=== PATIENT | male | born 2000 | race Caucasian/White ===

== ENCOUNTER 2023-06-09 01:24 | Emergency (ER) | payer MEDICAID, OTHER ==
[~2023-06-09] VITALS: Ht 160 cm; Wt 59.1 kg
[2023-06-09] MEDS ORDERED: ONDANSETRON INJECTION 4 MG/2 ML (SDV) IVP ONE (01:30)
[2023-06-09 01:43] LABS: BASOPHILS # (AUTO) 0.1 10^3/uL (0.0-0.1); BASOPHILS % (AUTO) 1 % (0-10); EOSINOPHILS # (AUTO) 0.1 10^3/uL (0.0-0.3); EOSINOPHILS % (AUTO) 2 % (0-10); HEMATOCRIT 41 % (40-54); HEMOGLOBIN 14.1 g/dL (13.3-17.7); LYMPHOCYTES # (AUTO) 3.1 10^3/uL (1.0-4.0); LYMPHOCYTES % (AUTO) 35 % (12-44); MEAN CORPUSCULAR HEMOGLOBIN 31 pg (25-34); MEAN CORPUSCULAR HGB CONC 35 g/dL (32-36); MEAN CORPUSCULAR VOLUME 90 fL (80-99); MEAN PLATELET VOLUME 9.4 fL (9.0-12.2); MONOCYTES # (AUTO) 0.6 10^3/uL (0.0-1.0); MONOCYTES % (AUTO) 7 % (0-12); NEUTROPHILS % (AUTO) 56 % (42-75); PLATELET COUNT 305 10^3/uL (130-400); WHITE BLOOD COUNT 8.8 10^3/uL (4.3-11.0)
[2023-06-09 01:55] LABS: AMPHETAMINE SCREEN, URINE POSITIVE (NEGATIVE); BARBITURATE SCREEN URINE NEGATIVE (NEGATIVE); BENZODIAZEPINES SCREEN URINE NEGATIVE (NEGATIVE); CANNABINOID SCREEN, URINE NEGATIVE (NEGATIVE); COCAINE SCREEN URINE NEGATIVE (NEGATIVE); METHADONE STAT NEGATIVE (NEGATIVE); OPIATE SCREEN URINE NEGATIVE (NEGATIVE); OXYCODONE STAT NEGATIVE (NEGATIVE); PROPOXYPHENE STAT NEGATIVE (NEGATIVE); TRICYCLIC ANTIDEPRESSANTS SCRE NEGATIVE (NEGATIVE)
[2023-06-09 01:59] LABS: CALCIUM 8.9 MG/DL (8.5-10.1); CREATININE SERUM 0.97 MG/DL (0.60-1.30); POTASSIUM 3.4 MMOL/L (3.6-5.0)
--- NOTE | 2023-06-09 02:14 | ED General ---
General Chief Complaint: Substance Abuse Stated Complaint: AMS Nursing Triage Note: Patient brought in via EMS with c/o patient being found on the ground. Patient states he was drinking alcohol tonight, but denies any drug use. Patient denies any other symptoms. Source of Information: Patient, EMS Exam Limitations: No Limitations History of Present Illness Date Seen by Provider: Jun 09, 2023 Time Seen by Provider: 01:27 Initial Comments This 23-year-old young man presents to the emergency room via EMS after being found down on the sidewalk. He denies any pain and does not have any evident injury. He is acutely intoxicated and admits to drinking alcohol tonight. He is alert to person but not place, date, or year. Vital signs are unremarkable. He reports a little bit of nausea. Allergies and Home Medications Allergies Coded Allergies: cefdinir (Verified Allergy, Unknown, 06/09/23) Patient Home Medication List Home Medication List Reviewed: Yes Review of Systems Review of Systems Constitutional: see HPI EENTM: no symptoms reported Respiratory: no symptoms reported Cardiovascular: no symptoms reported Gastrointestinal: see HPI Genitourinary: no symptoms reported Musculoskeletal: no symptoms reported Skin: no symptoms reported Psychiatric/Neurological: See HPI Hematologic/Lymphatic: No Symptoms Reported Immunological/Allergic: no symptoms reported Past Bqsesdc-Lokyzl-Rbectr Hx Patient Social History Tobacco Use?: No Use of E-Cig and/or Vaping dev: No Substance use?: No Alcohol Use?: Yes Alcohol Frequency: Rarely Immunizations Up To Date Influenza Vaccine Up-to-Date: No; Not Current Past Medical History Surgery/Hospitalization HX: ADHD Surgeries: No Respiratory: No Cardiac: No Neurological: No Genitourinary: No Gastrointestinal: No Musculoskeletal: No Endocrine: No HEENT: No Cancer: No Psychosocial: Yes ADD/ADHD Integumentary: No Physical Exam Vital Signs Vital Signs - First Documented 06/09/23 06/09/23 01:24 05:53 Temp 37.1 Pulse 96 Resp 12 B/P (MAP) 107/74 (85) Pulse Ox 97 O2 Delivery Room Air Capillary Refill : Height, Weight, BMI Height: '" Weight: lbs. oz. kg; 23.00 BMI Method: General Appearance: No Apparent Distress, WD/WN, Thin, Other (Intoxicated) HEENT: PERRL/EOMI, Normal ENT Inspection, Other (No apparent facial or dental injury) Neck: Normal Inspection, Non Tender, Supple Respiratory: Chest Non Tender, Lungs Clear, Normal Breath Sounds, No Accessory Muscle Use Cardiovascular: Regular Rate, Rhythm, No Edema, No Murmur Gastrointestinal: Non Tender, Soft; No Distended Extremity: Normal Inspection, Non Tender, No Pedal Edema Neurologic/Psychiatric: Alert, No Motor/Sensory Deficits, health concierge II-XII Norm as Tested, Other (Alert and conversational but disoriented to place, month, and year) Skin: Normal Color, Warm/Dry Progress/Results/Core Measures Suspected Sepsis SIRS Temperature: Pulse: 96 Respiratory Rate: 12 Laboratory Tests 06/09/23 01:30: White Blood Count 8.8 Blood Pressure 107 /74 Mean: 85 Laboratory Tests 06/09/23 01:30: Creatinine 0.97, Platelet Count 305 Results/Orders Lab Results Laboratory Tests Test 06/09/23 01:30 06/09/23 01:35 Range/Units White Blood Count 8.8 4.3-11.0 10^3/uL Red Blood Count 4.49 4.30-5.52 10^6/uL Hemoglobin 14.1 13.3-17.7 g/dL Hematocrit 41 40-54 % Mean Corpuscular Volume 90 80-99 fL Mean Corpuscular Hemoglobin 31 25-34 pg Mean Corpuscular Hemoglobin Concent 35 32-36 g/dL Red Cell Distribution Width 11.9 10.0-14.5 % Platelet Count 305 130-400 10^3/uL Mean Platelet Volume 9.4 9.0-12.2 fL Immature Granulocyte % (Auto) 0 % Neutrophils (%) (Auto) 56 42-75 % Lymphocytes (%) (Auto) 35 12-44 % Monocytes (%) (Auto) 7 0-12 % Eosinophils (%) (Auto) 2 0-10 % Basophils (%) (Auto) 1 0-10 % Neutrophils # (Auto) 5.0 1.8-7.8 10^3/uL Lymphocytes # (Auto) 3.1 1.0-4.0 10^3/uL Monocytes # (Auto) 0.6 0.0-1.0 10^3/uL Eosinophils # (Auto) 0.1 0.0-0.3 10^3/uL Basophils # (Auto) 0.1 0.0-0.1 10^3/uL Immature Granulocyte # (Auto) 0.0 0.0-0.1 10^3/uL Sodium Level 141 135-145 MMOL/L Potassium Level 3.4 L 3.6-5.0 MMOL/L Chloride Level 105 98-107 MMOL/L Carbon Dioxide Level 23 21-32 MMOL/L Anion Gap 13 5-14 MMOL/L Blood Urea Nitrogen 10 7-18 MG/DL Creatinine 0.97 0.60-1.30 MG/DL Estimat Glomerular Filtration Rate 112 BUN/Creatinine Ratio 10 Glucose Level 85 70-105 MG/DL Calcium Level 8.9 8.5-10.1 MG/DL Magnesium Level 2.0 1.6-2.4 MG/DL Serum Alcohol 147 H <10 MG/DL Urine Opiates Screen NEGATIVE NEGATIVE Urine Oxycodone Screen NEGATIVE NEGATIVE Urine Methadone Screen NEGATIVE NEGATIVE Urine Propoxyphene Screen NEGATIVE NEGATIVE Urine Barbiturates Screen NEGATIVE NEGATIVE Ur Tricyclic Antidepressants Screen NEGATIVE NEGATIVE Urine Phencyclidine Screen NEGATIVE NEGATIVE Urine Amphetamines Screen POSITIVE H NEGATIVE Urine Methamphetamines Screen NEGATIVE NEGATIVE Urine Benzodiazepines Screen NEGATIVE NEGATIVE Urine Cocaine Screen NEGATIVE NEGATIVE Urine Cannabinoids Screen NEGATIVE NEGATIVE My Orders Orders - RT SONI MD Basic Metabolic Panel (06/09/23 01:29) Cbc With Automated Diff (06/09/23 01:29) Magnesium (06/09/23 01:29) Ondansetron Injection (Zofran Injectio (06/09/23 01:30) Alcohol (06/09/23 01:29) Drug Screen Stat (Urine) (06/09/23 01:29) Medications Given in ED Vital Signs/I&O 06/09/23 06/09/23 01:24 05:53 Temp 37.1 Pulse 96 80 Resp 12 12 B/P (MAP) 107/74 (85) 90/56 Pulse Ox 97 O2 Delivery Room Air Room Air Capillary Refill : Blood Pressure Mean: 85 Progress Note : Progress Note Patient was interviewed and examined upon arrival. Report was received from EMS. Patient was hydrated with a liter of IV fluid and given Zofran for nausea. He was allowed to rest and sober. He was checked on periodically until he was alert and fully oriented. Labs were obtained and interpreted by me. CBC and CMP were unremarkable. Alcohol was 147. Drug screen was positive only for amphetamines which she takes for ADD. When sober enough, he was discharged into the care of his brother. See discharge instructions for further discussion. Departure Impression Primary Impression: Alcohol intoxication Qualified Codes: F10.929 - Alcohol use, unspecified with intoxication, unspecified Disposition: 01 HOME, SELF-CARE Condition: Improved Departure-Patient Inst. Decision time for Depature: 05:36 Referrals: UNKNOWN (PCP/Family) Primary Care Physician Patient Instructions: ALCOHOL AND SUBSTANCE ABUSE Add. Discharge Instructions: Drink plenty of water and other nonalcoholic clear liquids. Gradually advance your diet as tolerated. Avoid consuming alcohol to intoxication in the future. Return to care if you have any worsening of symptoms. All discharge instructions reviewed with patient and/or family. Voiced understanding. TR SONI MD Jun 09, 2023 02:14
[2023-06-09 05:53] VITALS: BP 90/56
== END 2023-06-09 05:53 | disposition home or self-care (01) ==
LOC: ER 01:27
DX: F10.129 Alcohol abuse with intoxication, unspecified (principal); Y90.6 Blood alcohol level of 120-199 mg/100 ml; Z28.310 Unvaccinated for COVID-19
CPT/HCPCS: 80048; 80306; 83735; 85025; 99284; G0480; 36415; 80320